=== PATIENT | male | born 2000 | race Caucasian/White ===

== ENCOUNTER 2022-04-27 17:38 | Outpatient (CLI) | payer OTHER, SELFPAY ==
[2022-04-27 22:23] LABS: Albumin* 4.9 g/dL (3.3-5.0); Chloride* 103 mmol/L (96-114)
[2022-04-27 22:24] LABS: Potassium* 4.4 mmol/L (3.6-5.1); Sodium* 140 mmol/L (135-149)
[2022-04-27 22:25] LABS: Cholesterol* 206 mg/dL (90-199)
[2022-04-27 22:26] LABS: Alanine Aminotransferase* 38 U/L (4-50); Alkaline Phosphatase* 76 U/L (40-150); Aspartate Amino Transferase* 28 U/L (12-35); Bilirubin Total* 0.7 mg/dL (0.1-1.5); Blood Urea Nitrogen* 14 mg/dL (5-24); Carbon Dioxide* 27 mmol/L (20-32); Creatinine* 0.8 mg/dL (0.5-1.5); Estimated Glomerular Filt Rate 130 ml/min; Glucose* 93 mg/dL (60-115); Total Protein* 7.5 g/dL (6.0-8.3); Triglycerides* 180 mg/dL (40-149)
[2022-04-27 22:27] LABS: Calcium* 9.9 mg/dL (8.4-10.6); HDL Cholesterol* 46 mg/dL (>=40); LDL Cholesterol Calculated 124 mg/dL (<100)
== END 2022-04-27 17:39 | disposition home or self-care (01) ==
PROVIDERS: PCP Family Medicine; Visit Provider Family Medicine
DX: Z00.00 Encounter for general adult medical examination without abnormal findings (principal); E66.9 Obesity, unspecified; E78.00 Pure hypercholesterolemia, unspecified; R10.9 Unspecified abdominal pain; R74.01 Elevation of levels of liver transaminase levels
CPT/HCPCS: 80053; 80061

== ENCOUNTER 2023-07-06 14:43 | Outpatient (CLI) | payer OTHER, SELFPAY | END 2023-07-06 14:44 | disposition home or self-care (01) | PROVIDERS: PCP Family Medicine; Visit Provider Emergency Medicine | DX: Z00.00 Encounter for general adult medical examination without abnormal findings (principal); E78.00 Pure hypercholesterolemia, unspecified; E66.9 Obesity, unspecified; R74.01 Elevation of levels of liver transaminase levels; F32.A Depression, unspecified | CPT/HCPCS: 80053; 84443 ==

== ENCOUNTER 2024-08-24 10:44 | Outpatient (CLI) | payer OTHER, SELFPAY | END 2024-08-24 10:45 | disposition home or self-care (01) | PROVIDERS: PCP Emergency Medicine; Visit Provider Emergency Medicine | DX: R41.89 Other symptoms and signs involving cognitive functions and awareness (principal); Z13.29 Encounter for screening for other suspected endocrine disorder; E66.9 Obesity, unspecified | CPT/HCPCS: 80053; 84443 ==